=== PATIENT | female | born 1980 | race Caucasian/White ===

== ENCOUNTER 2022-12-30 16:51 | Emergency (ER) | payer OTHER ==
[~2022-12-30] VITALS: Ht 167.6 cm; Wt 77.1 kg
--- NOTE | 2022-12-30 17:03 | NUR ---
BIB ambulance from home with c/o ambien OD, possibly took 13 tabs with ETOH, family states she has SI. Patient was found lying in bed. Arrived in ER only responsive to pain with a GCS of 2-3-5. Patient remains on ambulance gurney, awaiting room assignment. Patient has a #20g in left hand placed by leaf sorter prior to arrival. Patient is non verbal at this time. [id number]% ra with a blood glucose of 97. Patient has been seen by ER MD.
--- NOTE | 2022-12-30 17:16 | NUR ---
Currently patient arouses to pain and answers some questions, states she took 2 ambien at 7a.m. for sleep. continues to await room assignment, waiting on conservation biology professor gurney.
[2022-12-30 17:23] LABS: HEMATOCRIT 38.2 % (31.2-41.9); MEAN CORPUSCULAR HEMOGLOBIN 30.2 uug (24.7-32.8); MEAN CORPUSCULAR VOLUME 91.8 fL (75.5-95.3); PLATELET COUNT (AUTO) 259 K/uL (179-408)
--- NOTE | 2022-12-30 17:34 | NUR ---
Bedside EKG done for MD review.
[2022-12-30 17:35] LABS: CREATINE KINASE, TOTAL 49 U/L (26-192)
[2022-12-30 17:50] LABS: CARBON DIOXIDE 26 mmol/L (21-32); CHLORIDE 110 mmol/L (98-107); CREATININE 0.7 mg/dL (0.6-1.3); GLUCOSE 112 mg/dL (74-106); POTASSIUM 3.6 mmol/L (3.5-5.1); UREA NITROGEN, BLOOD 12 mg/dL (7-18)
[2022-12-30 17:56] LABS: ALANINE AMINOTRANSFERASE 14 U/L (14-59); ALKALINE PHOSPHATASE 62 U/L (50-136); ASPARTATE AMINOTRANSFERASE < 5 U/L (15-37); BILIRUBIN,DIRECT 0.1 mg/dL (0.0-0.2); BILIRUBIN,TOTAL 0.3 mg/dL (0.2-1.0); TOTAL PROTEIN, SERUM 6.1 g/dL (6.4-8.2)
[2022-12-30 17:57] LABS: ACETAMINOPHEN < 2.0 ug/mL (10-30)
--- NOTE | 2022-12-30 18:01 | NUR ---
patient to room #4B, Bedside I&O cath done and sent to lab. Frequent monitoring in place.
[2022-12-30 18:34] LABS: ETHANOL 362 MG/DL (0-0)
[2022-12-30 19:03] LABS: *BILIRUBIN,URIN NEGATIVE (NEGATIVE); *CLARITY,URINE CLEAR (CLEAR); *COLOR,URINE LIGHT YELLOW (YELLOW); *KETONES,URINE NEGATIVE (NEGATIVE); *UROBILINOGEN,URINE 0.2 E.U./dl (NORMAL); LEUKOCYTE ESTERASE ,URINE NEGATIVE (NEGATIVE); NITRITE, URINE NEGATIVE (NEGATIVE); UGLUCOSE NEGATIVE (NEGATIVE)
[2022-12-30 19:11] LABS: *BLOOD, URINE TRACE (NEGATIVE)
--- NOTE | 2022-12-30 19:24 | NUR ---
Report given to accepting nurse. Addendum: 12/30/22 at 1926 by OCTAVIANO Pt remains stable.
[2022-12-30 19:38] LABS: *AMPHETAMINE, URINE NEGATIVE (NEGATIVE); *CANNABINOID, URINE NEGATIVE (NEGATIVE); *COCCAINE, URINE NEGATIVE (NEGATIVE); *PHENCYCLIDINE SCREEN,URINE NEGATIVE (NEGATIVE)
--- NOTE | 2022-12-30 19:47 | NUR ---
Received patient in room 4-B for complaint of overdose, asleep and arousable to painful stimuli/sternal chest rub. vitals stable, afebrile, pending PET team evaluation.
--- NOTE | 2022-12-30 19:56 | NUR ---
No 1:1 sitter available per nursing pressroom supervisor.
[2022-12-31 01:17] LABS: BACTERIA,URINE FEW /HPF (NONE SEEN); RBC,URINE 0-3 /HPF (0-3); SQUAMOUS EPITHELIAL CELL,UR FEW /HPF (NONE SEEN); WBC,URINE 0-3 /HPF (0-3)
--- NOTE | 2022-12-31 04:37 | NUR ---
Patient is up using the restroom, spoke to Dr James, verbalized suicide thoughts. Patient is to be evaluated by psych today. Patient is resting in bed, no complaint voiced.
--- NOTE | 2022-12-31 07:11 | NUR ---
Received report from receiving RN. Pt in stable condition. Safety measures in place. Will continue to monitor.
--- NOTE | 2022-12-31 08:11 | NUR ---
Contacted Crisis Counselor, Den. Informed Art of Pt regarding name, age, drug and alcohol use, as well as pt verbalizing "suicidal thoughts." Art stated he'll let "the social media marketing analyst handle it." Safety measures in place. Will continue to monitor.
--- NOTE | 2022-12-31 09:28 | NUR ---
Talked to Pj of Admissions from [facility] (received phone call from them from Pt's phone). Pj informed me that [facility] is willing to accept Pt as they accept her insurance. Faxed Pj summary report of Pt. Was informed by Pj that their corrugated fastener driver (Karen) will come in 20 min. Pt currently in stable condition. Safety measures in place. Will continue to monitor.
--- NOTE | 2022-12-31 09:57 | NUR ---
Patient discharged to [facility] in stable condition. Written and verbal after care instructions given. Patient entered Ad Taker's car (Karen) in stable condition. Gave Karen facesheet. Patient verbalizes understanding of instructions. Stressed follow up or return to ER for worsening s/s.
[2022-12-31 10:27] VITALS: BP 111/81
== END 2022-12-31 10:27 ==
LOC: ER 16:51
DX: T42.6X2A Poisoning by other antiepileptic and sedative-hypnotic drugs, intentional self-harm, initial encounter (principal); F10.129 Alcohol abuse with intoxication, unspecified; R07.89 Other chest pain; R10.2 Pelvic and perineal pain; Y92.89 Other specified places as the place of occurrence of the external cause; Y90.8 Blood alcohol level of 240 mg/100 ml or more; Z20.822 Contact with and (suspected) exposure to COVID-19
CPT/HCPCS: 36415; 85025; 93005; A4663; G0480